=== PATIENT | female | born 1995 ===

== ENCOUNTER 2017-04-10 02:19 | Emergency (ER) | payer BC ==
[2017-04-10 02:25] VITALS: BP 121/73; PULSE 80; RESP 18; TEMP 98.2; O2SAT 99
--- NOTE | 2017-04-10 03:16 | ED PDOC ---
HPI: Head Injury Time Seen by Provider: 04/10/17 02:25 Chief Complaint (Nursing): Trauma Chief Complaint (Provider): Head Injury History Per: Patient, EMS History/Exam Limitations: no limitations Injury Occurred (Timing): Just Before Arrival Onset/Duration Of Symptoms: Mins Patient States: Fell Striking Head Loss Of Consciousness: Yes Additional Complaint(s): 22 year old female with no significant past medical history, who presents to the ED for evaluation after a head injury prior to arrival. Patient admits to drinking alcohol. Reports falling and hitting her head and had positive LOC witnessed by a friend. Patient currently has no complaints. Denies headache, weakness, numbness, and tingling. PMD: None provided Past Medical History Reviewed: Historical Data, Nursing Documentation, Vital Signs Vital Signs: Last Vital Signs Temp 98.2 F 04/10/17 02:23 Pulse 80 04/10/17 02:23 Resp 18 04/10/17 02:23 BP 121/73 04/10/17 02:23 Pulse Ox 99 04/10/17 02:23 - Medical History PMH: No Chronic Diseases - Surgical History Surgical History: No Surg Hx - Family History Family History: States: Unknown Family Hx - Allergies Allergies/Adverse Reactions: Allergies Allergy/AdvReac Type Severity Reaction Status Date / Time Sulfa (Sulfonamide Allergy RASH Verified 04/10/17 02:23 Antibiotics) Review of Systems ROS Statement: Except As Marked, All Systems Reviewed And Found Negative Neurological: Positive for: Other (positive LOC). Negative for: Weakness, Numbness, Headache Physical Exam - Reviewed Nursing Documentation Reviewed: Yes Vital Signs Reviewed: Yes - Physical Exam Appears: Positive for: Non-toxic, No Acute Distress (tearful) Head Exam: Positive for: ATRAUMATIC, NORMAL INSPECTION, NORMOCEPHALIC Skin: Positive for: Normal Color, Warm, Dry. Negative for: Rash Eye Exam: Positive for: EOMI, Normal appearance, PERRL Neck: Negative for: Normal (c-collar in place) Cardiovascular/Chest: Positive for: Regular Rate, Rhythm. Negative for: Murmur Respiratory: Positive for: Normal Breath Sounds. Negative for: Respiratory Distress Gastrointestinal/Abdominal: Positive for: Normal Exam, Bowel Sounds, Soft. Negative for: Tenderness Back: Positive for: Normal Inspection. Negative for: L CVA Tenderness, R CVA Tenderness, Vertebral Tenderness Extremity: Positive for: Normal ROM (moving all extremities, neurovascular intact). Negative for: Pedal Edema, Deformity Neurologic/Psych: Positive for: Alert, Oriented (x3). Negative for: Motor/ Sensory Deficits - ECG O2 Sat by Pulse Oximetry: 99 (RA) Pulse Ox Interpretation: Normal Medical Decision Making Medical Decision Making: Time: 02:58 Initial Impression: Head injury and intoxication Initial Plan: --CT Spine w/o contrast --CT Head w/o contrast --Alcohol serum --Glucose, Blood, POC --Reevaluation Time: 04:30 Upon reevaluation, patient is awake, alert, and has a steady gait. Patient's parents are at bedside. Will be discharged home. Scribe Attestation: Documented by Everton Guy, acting as a scribe for Terry Oneil MD. Provider Scribe Attestation: All medical record entries made by the Scribe were at my direction and personally dictated by me. I have reviewed the chart and agree that the record accurately reflects my personal performance of the history, physical exam, medical decision making, and the department course for this patient. I have also personally directed, reviewed, and agree with the discharge instructions and disposition. Disposition - Clinical Impression Clinical Impression: Alcohol intoxication, Head injury - Patient ED Disposition Is Patient to be Admitted: No Counseled Patient/Family Regarding: Studies Performed, Diagnosis - Disposition Referrals: [facility] Schum[facility] [Outside] Disposition: Routine/Home Disposition Time: 04:40 Condition: STABLE Instructions: Minor Head Injury (DC), Alcohol Abuse and Alcoholism (DC) Forms: [employer] (Mauritian)
--- NOTE | 2017-04-10 04:15 | CT ---
EXAM: CT Head Without Intravenous Contrast CLINICAL HISTORY: 22 years old, female; Injury or trauma; Fall; Initial encounter; Blunt trauma (contusions or hematomas); With loss of consciousness; Not specified; Additional info: Intox, fall, loc TECHNIQUE: Axial computed tomography images of the head/brain without intravenous contrast. All CT scans at this facility use one or more dose reduction techniques, viz.: automated exposure control; ma/kV adjustment per patient size (including targeted exams where dose is matched to indication; i.e. head); or iterative reconstruction technique. Coronal and sagittal reformatted images were created and reviewed. COMPARISON: No relevant prior studies available. FINDINGS: Brain: No intracranial hemorrhage. No mass. No edema. Ventricles: No hydrocephalus. Bones/joints: No acute fracture. Soft tissues: Unremarkable. Sinuses: Scattered minimal mucosal thickening of ethmoid sinuses. Mastoid air cells: No mastoid effusion. Orbits: Unremarkable as visualized. IMPRESSION: 1. No intracranial hemorrhage. 2. Incidental/non-acute findings are described above.
--- NOTE | 2017-04-10 04:16 | CT ---
EXAM: CT Cervical Spine Without Intravenous Contrast CLINICAL HISTORY: 22 years old, female; Injury or trauma; Fall; Work related; Initial encounter; Blunt trauma; Additional info: Intox, fall, loc TECHNIQUE: Axial computed tomography images of the cervical spine without intravenous contrast. All CT scans at this facility use one or more dose reduction techniques, viz.: automated exposure control; ma/kV adjustment per patient size (including targeted exams where dose is matched to indication; i.e. head); or iterative reconstruction technique. COMPARISON: No relevant prior studies available. FINDINGS: Vertebrae: No acute fracture. Discs/spinal canal/neural foramina: No significant spinal canal stenosis. Soft tissues: Unremarkable. Lung apices: Unremarkable as visualized. IMPRESSION: 1. No fracture.
== END 2017-04-10 04:49 | disposition home or self-care (01) ==
LOC: H.ER 02:19
DX: F10.129 Alcohol abuse with intoxication, unspecified (principal); S06.0X1A Concussion with loss of consciousness of 30 minutes or less, initial encounter; W19.XXXA Unspecified fall, initial encounter; Y92.89 Other specified places as the place of occurrence of the external cause
CPT/HCPCS: 70450; 72125; 81025; 82948; 99285; G0480